=== PATIENT | male | born 1980 | race Hispanic/Latino ===

== ENCOUNTER 2021-07-17 04:59 | Inpatient (IN) | payer SELFPAY ==
[~2021-07-17] VITALS: Ht 162.6 cm; Wt 79.6 kg
[2021-07-17 05:08] VITALS: BP 136/86
[2021-07-17 05:43] LABS: BASOPHILS % (AUTO) 0.3 % (0.0-5.0); EOSINOPHILS % (AUTO) 0.6 % (0.0-8.0); LYMPHOCYTES % (AUTO) 13.5 % (21.0-51.0); MEAN CORPUSCULAR HEMOGLOBIN 30.1 pg (27.0-33.0); MEAN CORPUSCULAR HGB CONC 34.4 g/dL (32.0-36.0); MEAN CORPUSCULAR VOLUME 87.6 fL (79-99); MONOCYTES % (AUTO) 10.4 % (3.0-13.0); NEUTROPHILS % (AUTO) 74.7 % (40.0-77.0); PLATELET COUNT (AUTO) 142 K/uL (130-400); RED BLOOD CELL COUNT(AUTO) 4.68 MIL/uL (4.50-6.20); WHITE BLOOD COUNT (AUTO) 12.8 K/uL (4.8-10.8)
[2021-07-17 05:57] LABS: CREATININE 0.8 mg/dL (0.5-1.5); POTASSIUM 3.6 mmol/L (3.5-5.1)
[2021-07-17 06:05] LABS: ALBUMIN 3.3 g/dL (3.5-5.0); BILIRUBIN,TOTAL 0.7 mg/dL (0.2-1.0); TOTAL PROTEIN, SERUM 7.5 g/dL (6.0-8.3)
[2021-07-17 06:17] LABS: APPEARANCE,URINE Cloudy (CLEAR); BILIRUBIN,URINE Negative (NEGATIVE); COLOR,URINE Yellow (YELLOW); GLUCOSE, URINE (UA) >=1000 mg/dL (NEGATIVE); KETONES,URINE 15 mg/dL (NEGATIVE); LEUKOCYTE ESTERASE ,URINE Small (NEGATIVE); NITRATE,URINE Negative (NEGATIVE); OCCULT BLOOD,URINE Negative (NEGATIVE); PH,URINE 6.5 (5.0-8.0); PROTEIN,URINE Trace mg/dL (NEGATIVE)
[2021-07-17] MEDS ORDERED: VANCOMYCIN 1G VIAL IVPB ONE (06:30)
[2021-07-17] MEDS ORDERED: GENTAMICIN SULFATE 80 MG/2 ML VIAL IV SCH (06:30)
[2021-07-17] MEDS ORDERED: GENTAMICIN 80 MG/NS 100 ML PB 100 ML IV SCH (07:00)
[2021-07-17] MEDS ORDERED: VANCOMYCIN KIT 1 GM/250 ML IV.KIT IV SCH (07:00)
[2021-07-17] MEDS ORDERED: 0.9% NACL 250ML 250 ML IV SCH (07:00)
[2021-07-17 07:11] VITALS: BP 123/79
[2021-07-17 07:19] LABS: BACTERIA,URINE Few /HPF (None Seen); RBC,URINE 0-1 /HPF (0-1); SQUAMOUS EPITHELIAL CELL,UR Rare /HPF (0-2); WBC,URINE >100 /HPF (0-1)
[2021-07-17] MEDS ORDERED: CEFTRIAXONE 2GM VIAL IVP SCH (07:30)
[2021-07-17] MEDS ORDERED: VANCOMYCIN PROTOCOL PER PHARMACY IV SCH (08:30)
[2021-07-17 08:47] LABS: HEMOGLOBIN A1C 9.1 % (4.0-6.0)
[2021-07-17 09:01] LABS: AMPHET/METH SCREEN,URINE NEGATIVE (NEGATIVE); BARBITURATE SCREEN, URINE NEGATIVE (NEGATIVE); BENZODIAZEPINES SCREEN,URINE NEGATIVE (NEGATIVE); CANNABINOID SCREEN,URINE NEGATIVE (NEGATIVE); COCAINE SCREEN,URINE NEGATIVE (NEGATIVE); OPIATE SCREEN,URINE NEGATIVE (NEGATIVE); PHENCYCLIDINE SCREEN,URINE NEGATIVE (NEGATIVE)
[2021-07-17 10:19] VITALS: BP 116/75
[2021-07-17 11:50] VITALS: BP 113/80
[2021-07-17] MEDS ORDERED: ZOSYN 3.375GM+NS 50ML 3.38 GM in 0.9%NACL 50ML 50 ML IV SCH (13:00)
[2021-07-17] MEDS: ZOSYN 3.375GM+NS 50ML 50 ML IV SCH ×2 (13:28→20:57)
[2021-07-17 15:00] VITALS: BP 118/83
[2021-07-17] MEDS: VANCOMYCIN 750MG VIAL IVPB SCH ×2 (15:14→20:52)
[2021-07-17] MEDS: 0.9% NACL 250ML 250 ML IV SCH ×2 (15:14→20:52)
[2021-07-17] MEDS: ACETAMINOPHEN WITH CODEINE 1 TAB TAB PO PRN ×2 (15:15→20:52)
[2021-07-17] MEDS: INSULIN HUMULIN R 100 UNIT/ML 3ML SQ SCH ×2 (16:30→21:05)
[2021-07-17 19:31] VITALS: BP 111/71
[2021-07-18 00:22] VITALS: BP 112/55
[2021-07-18 04:15] VITALS: BP 97/54
[2021-07-18] MEDS: ZOSYN 3.375GM+NS 50ML 50 ML IV SCH ×3 (05:30→21:50)
[2021-07-18] MEDS: INSULIN HUMULIN R 100 UNIT/ML 3ML SQ SCH ×4 (07:30→22:03)
[2021-07-18 07:52] VITALS: BP 115/75
[2021-07-18] MEDS: VANCOMYCIN 750MG VIAL IVPB SCH ×3 (10:36→21:49)
[2021-07-18] MEDS: 0.9% NACL 250ML 250 ML IV SCH ×3 (10:36→21:50)
[2021-07-18] MEDS: ACETAMINOPHEN WITH CODEINE 1 TAB TAB PO PRN ×2 (10:45→21:50)
[2021-07-18 11:28] VITALS: BP 111/73
[2021-07-18 12:45] LABS: INR 1.03 (0.85-1.15); PROTHROMBIN TIME 11.2 SEC (9.6-11.6)
[2021-07-18 16:18] VITALS: BP 110/75
[2021-07-18 20:00] VITALS: BP 115/75
[2021-07-19] VITALS (7 sets, daily range): BP systolic 90–107; BP diastolic 55–72
[2021-07-19 05:13] LABS: BASOPHILS % (AUTO) 0.9 % (0.0-5.0); EOSINOPHILS % (AUTO) 1.6 % (0.0-8.0); HEMATOCRIT 39.3 % (42-54); LYMPHOCYTES % (AUTO) 19.1 % (21.0-51.0); MEAN CORPUSCULAR HEMOGLOBIN 31.2 pg (27.0-33.0); MEAN CORPUSCULAR HGB CONC 34.1 g/dL (32.0-36.0); MEAN CORPUSCULAR VOLUME 91.6 fL (79-99); MONOCYTES % (AUTO) 9.4 % (3.0-13.0); NEUTROPHILS % (AUTO) 68.1 % (40.0-77.0); PLATELET COUNT (AUTO) 165 K/uL (130-400); RED BLOOD CELL COUNT(AUTO) 4.29 MIL/uL (4.50-6.20); RED CELL DISTRIBUTION WIDTH 11.9 % (11.0-15.5); WHITE BLOOD COUNT (AUTO) 7.7 K/uL (4.8-10.8)
[2021-07-19 05:30] LABS: CREATININE 0.9 mg/dL (0.5-1.5)
[2021-07-19] MEDS: VANCOMYCIN 750MG VIAL IVPB SCH ×3 (05:41→21:39)
[2021-07-19] MEDS: ZOSYN 3.375GM+NS 50ML 50 ML IV SCH (05:41)
[2021-07-19] MEDS: 0.9% NACL 250ML 250 ML IV SCH ×2 (05:42→14:01)
[2021-07-19] MEDS: INSULIN HUMULIN R 100 UNIT/ML 3ML SQ SCH ×4 (07:00→21:56)
[2021-07-19] MEDS ORDERED: LEVOFLOXACIN 500 MG/D5W 100 ML 100 ML IV SCH (10:00)
[2021-07-19] MEDS: METRONIDAZOLE 500MG/100ML BAG 100 ML IVPB SCH ×2 (14:01→21:39)
[2021-07-19] MEDS: ACETAMINOPHEN WITH CODEINE 1 TAB TAB PO PRN ×2 (14:37→22:09)
[2021-07-19] MEDS: METFORMIN HCL 500 MG TABLET PO SCH (16:16)
[2021-07-19] MEDS ORDERED: 0.9% NACL 250ML 250 ML ONE (20:25)
[2021-07-20 03:33] VITALS: BP 99/64
[2021-07-20] MEDS ORDERED: 0.9% NACL 250ML 250 ML ONE (05:11)
[2021-07-20] MEDS: VANCOMYCIN 750MG VIAL IVPB SCH (05:40)
[2021-07-20] MEDS: METRONIDAZOLE 500MG/100ML BAG 100 ML IVPB SCH (05:40)
[2021-07-20 05:46] LABS: BASOPHILS % (AUTO) 0.9 % (0.0-5.0); EOSINOPHILS % (AUTO) 2.4 % (0.0-8.0); HEMATOCRIT 39.2 % (42-54); LYMPHOCYTES % (AUTO) 20.7 % (21.0-51.0); MEAN CORPUSCULAR HEMOGLOBIN 29.9 pg (27.0-33.0); MEAN CORPUSCULAR HGB CONC 32.9 g/dL (32.0-36.0); MONOCYTES % (AUTO) 8.1 % (3.0-13.0); NEUTROPHILS % (AUTO) 66.9 % (40.0-77.0); PLATELET COUNT (AUTO) 184 K/uL (130-400); RED BLOOD CELL COUNT(AUTO) 4.31 MIL/uL (4.50-6.20); RED CELL DISTRIBUTION WIDTH 11.8 % (11.0-15.5); WHITE BLOOD COUNT (AUTO) 7.1 K/uL (4.8-10.8)
[2021-07-20 06:27] LABS: CREATININE 0.9 mg/dL (0.5-1.5); CRP QUANTITATIVE 47.1 mg/L (0.00-9.0); POTASSIUM 4.3 mmol/L (3.5-5.1)
[2021-07-20 06:50] LABS: ERYTHROCYTE SEDIMENTATION RATE 36 MM/HR (0-15)
[2021-07-20] MEDS: INSULIN HUMULIN R 100 UNIT/ML 3ML SQ SCH ×4 (07:27→21:47)
[2021-07-20] MEDS: METFORMIN HCL 500 MG TABLET PO SCH ×3 (07:37→16:57)
[2021-07-20 08:00] VITALS: BP 95/50
[2021-07-20 12:00] VITALS: BP 96/63
[2021-07-20 16:00] VITALS: BP 116/73
[2021-07-20] MEDS: ACETAMINOPHEN WITH CODEINE 1 TAB TAB PO PRN (17:11)
[2021-07-20 20:00] VITALS: BP 114/69
[2021-07-20] MEDS: DOXYCYCLINE HYCLATE 100 MG TABLET PO SCH (20:50)
[2021-07-20 23:53] VITALS: BP 98/52
[2021-07-21 04:00] VITALS: BP 93/59
[2021-07-21 05:54] LABS: BASOPHILS % (AUTO) 0.8 % (0.0-5.0); EOSINOPHILS % (AUTO) 2.4 % (0.0-8.0); HEMATOCRIT 39.7 % (42-54); LYMPHOCYTES % (AUTO) 20.8 % (21.0-51.0); MEAN CORPUSCULAR HEMOGLOBIN 30.3 pg (27.0-33.0); MEAN CORPUSCULAR HGB CONC 33.8 g/dL (32.0-36.0); MEAN CORPUSCULAR VOLUME 89.8 fL (79-99); MONOCYTES % (AUTO) 6.8 % (3.0-13.0); NEUTROPHILS % (AUTO) 67.9 % (40.0-77.0); PLATELET COUNT (AUTO) 207 K/uL (130-400); RED BLOOD CELL COUNT(AUTO) 4.42 MIL/uL (4.50-6.20); RED CELL DISTRIBUTION WIDTH 11.8 % (11.0-15.5); WHITE BLOOD COUNT (AUTO) 7.9 K/uL (4.8-10.8)
[2021-07-21 06:22] LABS: CREATININE 0.8 mg/dL (0.5-1.5); POTASSIUM 3.9 mmol/L (3.5-5.1)
[2021-07-21] MEDS: INSULIN HUMULIN R 100 UNIT/ML 3ML SQ SCH ×2 (06:34→11:30)
[2021-07-21] MEDS: METFORMIN HCL 500 MG TABLET PO SCH ×2 (07:35→11:57)
[2021-07-21 08:00] VITALS: BP 97/56
[2021-07-21] MEDS: DOXYCYCLINE HYCLATE 100 MG TABLET PO SCH (08:37)
[2021-07-21] MEDS ORDERED: METF-444 PO (12:35)
[2021-07-21] MEDS ORDERED: DOXY100T2 PO (14:25)
[2021-07-22 17:10] LABS: CHLAMYDIA DNA N.A.AMPLIFY Positive (Negative)
== END 2021-07-21 16:00 | disposition home or self-care (01) | DRG 728 ==
LOC: EDH 04:59 → EDHIP 05:00 → UNDOADMIN 08:18 → 3BH 11:37
PROVIDERS: ADMIT Internal Medicine; ATTEND Internal Medicine
DX: N48.22 Cellulitis of corpus cavernosum and penis (principal); N48.89 Other specified disorders of penis; E11.65 Type 2 diabetes mellitus with hyperglycemia; N48.29 Other inflammatory disorders of penis; E66.9 Obesity, unspecified; Z20.822 Contact with and (suspected) exposure to COVID-19; Z68.30 Body mass index [BMI] 30.0-30.9, adult; Z83.3 Family history of diabetes mellitus
CPT/HCPCS: 36415; 74176; 80048; 80053; 80202; 80305; 81001; 82948; 83036; 84145; 85025; 85610; 85651; 86140; 86701; 86850; 86900; 86901; 87040; 87070; 87076; 87077; 87088; 87186; 87390; 87486; 87635; 87797; G0378; J0696; J1580; J1815; J1956; J2543; J3370; J3490; J7050